=== PATIENT | female | born 1995 | race American Indian/Alaskan Native ===

== ENCOUNTER 2019-02-09 14:58 | Outpatient (CLI) | payer MEDICAID, OTHER ==
[2019-02-09] MEDS ORDERED: LACTATED RINGERS 500 ML IV ONE (15:02)
[2019-02-09 15:45] VITALS: BP 104/60
[2019-02-09 15:53] LABS: Bacteria,Urine 3+ /HPF (Negative); Bilirubin,Urine NEG (Negative); Blood,Urine SM (Negative); Color,Urine Yellow (Yellow); Mucus,Urine FEW /HPF; Protein,Urine <15 mg/dL mg/dL (Negative); Urobilinogen,Urine < 2.0 mg/dL (<2.0)
--- NOTE | 2019-02-09 20:53 | Ultrasound Report ---
PROCEDURE: US OB LIMITED TECHNIQUE: Ultrasound obstetrical transabdominal HISTORY: c/o leaking of fluid COMPARISONS: FINDINGS: Single live intrauterine gestation present in cephalic presentation cardiac activity present. 150 bpm The placenta is anterior Amniotic fluid index within normal limits 14.8 cm IMPRESSION: Normal amniotic fluid index 14.8 cm. This document is electronically signed by Rad Bui MD., February 09 2019 08:51:18 PM ET
== END 2019-02-09 18:27 | disposition home or self-care (01) ==
LOC: TRG 14:58
PROVIDERS: ATTEND Obstetrics & Gynecology
DX: O47.02 False labor before 37 completed weeks of gestation, second trimester (principal); Z3A.26 26 weeks gestation of pregnancy
CPT/HCPCS: 59025; 76815; 81001

== ENCOUNTER 2019-05-05 09:57 | Inpatient (IN) | payer MEDICAID ==
[2019-05-05] MEDS ORDERED: SUBLIMAZE IV PRN (10:24)
[2019-05-05] MEDS ORDERED: BRETHINE SUB-Q PRN (10:24)
--- NOTE | 2019-05-05 10:34 | History and Physical Report ---
History of Present Illness Date of examination: 05/05/19 Date of admission: 05/05/2019 Chief complaint: Contractions History of present illness: 24 year old presents to L&D in active labor. Patient reports her contractions began at 05:00 this morning. She denies leaking of fluid. She reports active movement. Patient received care at [facility] and records were able to be accessed. LMP 07/21/18. EDC 05/12/19 (based on US done at 23 weeks gestation). significant for the following: Late care (23 wks. 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 labs are as follows: B positive, antibody screen negative, rubella immune, hepatitis B surface antigen negative, HIV negative, RPR nonreactive, varicella immune, hemoglobin electrophoresis AA, CT/GC/TV negative, 1 hour diabetes screen 73, GBS negative. 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 denies: hepatitis B, hepatitis C, herpes, HIV, syphilis, trichomonas Family/Genetic History: none Social history: single, lives with family, full code. denies: smoking, alcohol abuse, prescription drug abuse, IV drug use - Obstetrical History Expected Date of Delivery: 05/12/19 Actual Gestation: 39 Week(s) 0 Day(s) : 2 Para: 1 Hx # Term Pregnancies: 0 Number of Pregnancies: 0 Spontaneous Abortions: 0 Induced : 0 Number of Living Children: 1 Medications and Allergies Allergies Allergy/AdvReac Type Severity Reaction Status Date / Time No Known Allergies Allergy Verified 04/21/14 04:49 Home Medications Medication Instructions Recorded Confirmed Last Taken Type No Known Home Medications [No 04/18/14 04/21/14 Unknown History Reported Home Medications] Review of Systems All systems: negative (contractions) - Vital Signs Vital signs: Vital Signs Pulse BP 90 126/76 05/05/19 10:22 05/05/19 10:22 Temp Pulse Resp BP Pulse Ox 90 126/76 05/05/19 10:22 05/05/19 10:22 - Physical Exam Cardiovascular: Regular rate, Normal S1, Normal S2, No murmurs Lungs: Positive: Clear to auscultation Abdomen: Positive: normal appearance, soft. Negative: distention, tenderness, guarding, rigidity Genitourinary (Female): Positive: normal external genitalia, normal perenium. Negative: perineal/vulvar lesions (no lesions noted on careful exam with bright light upon admission) Vagina: Positive: normal moisture Uterus: Positive: enlarged (S=D) Anus/Rectum: Positive: normal perianal skin Extremities: Positive: normal - Obstetrical FHR: category 1 Uterine Contraction Monitor Mode: External Cervical Dilatation: 7 Cervical Effacement Percentage: 95 station: 0 Uterine Contraction Pattern: Regular Uterine Contraction Intensity: Moderate Results All other labs normal. Assessment and Plan A: at 39 weeks gestation. Active labor. GBS negative. P: Admit. Electronic monitoring. Anticipate vaginal .
[2019-05-05] MEDS ORDERED: PITOCin/NS 20 UNIT/1000ML DRIP 20 UNITS/1,000 ML BAG IV SCH (11:00)
[2019-05-05] MEDS ORDERED: XYLOCAINE 2% INFILTRATI ONE (11:00)
[2019-05-05] MEDS: LACTATED RINGERS 1,000 ML IV SCH ×2 (11:30→12:35)
[2019-05-05 11:31] LABS: Hematocrit 29.9 % (30.3-42.9); Mean Corpuscular HGB Conc 33 % (30-34); Mean Corpuscular Volume 87 fl (79-97); Platelet Count 183 K/mm3 (140-440); Red Blood Count 3.42 M/mm3 (3.65-5.03)
[2019-05-05] MEDS ORDERED: fentaNYL-BUPIV 2 MCG/ML-0.125% 200 MCG/100 ML BAG EPIDURAL ONE (11:53)
--- NOTE | 2019-05-05 12:14 | Anesthesia Consultation ---
Anesthesia Consult and Med Hx Date of service: 05/05/19 - Pre-Operative Health Status ASA Pre-Surgery Classification: ASA2 Proposed Anesthetic Plan: Epidural - Pulmonary Hx Asthma: No COPD: No Hx Pneumonia: No - Cardiovascular System Hx Hypertension: No - Central Nervous System Hx Seizures: No Hx Psychiatric Problems: No - Endocrine Hx Renal Disease: No Hx End Stage Renal Disease: No Hx Hypothyroidism: No Hx Hyperthyroidism: No - Hematic Hx Anemia: No Hx Sickle Cell Disease: No - Other Systems Hx Alcohol Use: No
[2019-05-05] MEDS ORDERED: NARCAN 2 MG/2 ML IV PRN (12:15)
--- NOTE | 2019-05-05 12:15 | Anesthesia Day of Surgery ---
Anesthesia Day of Surgery - Day of Surgery Patient Examined: Yes Patient H&P Reviewed: Yes Patient is NPO: No
[2019-05-05] MEDS ORDERED: ZOFRAN ONE (12:30)
[2019-05-05] MEDS ORDERED: fentaNYL-BUPIV 2 MCG/ML-0.125% 200 MCG/100 ML BAG EPIDURAL SCH (13:00)
[2019-05-05] MEDS ORDERED: DULCOLAX PR PRN (16:41)
[2019-05-05] MEDS ORDERED: MILK OF MAGNESIA PO PRN (16:41)
[2019-05-05] MEDS ORDERED: TUCKS PAD TP PRN (16:41)
[2019-05-05] MEDS ORDERED: NORCO 5/325 PO PRN (16:41)
[2019-05-05] MEDS ORDERED: LANSINOH TP PRN (16:41)
[2019-05-05] MEDS ORDERED: SODIUM CHLORIDE FLUSH SYRINGE 10 ML IV SCH (17:00)
--- NOTE | 2019-05-05 19:10 | Procedure Note ---
OB Delivery Note - Delivery Date of Delivery: 05/05/19 Surgeon: VINCENT KLINE Estimated blood loss: other (250 cc) - Vaginal Delivery presentation: vertex Delivery position: OA Intrapartum events: none Delivery induction: none Delivery monitor: external FHT, external uterine Route of delivery: Delivery placenta: spontaneous Delivery cord: 3 umbilical vessels, other (tight nuchal cord times 1) Delivery laceration: none Anesthesia: epidural Delivery comments: Spontaneous vaginal delivery at 14:30 of liveborn male weighing 3.299 kg over intact perineum with apgars of 8/8. Epidural anesthesia. Tight nuchal cord noted after delivery of head; cord clamped and cut on perineum. Baby placed immediately skin to skin with mom after delivery. Spontaneous cry and respira tions; baby dried and bulb suctioned. Spontaneous delivery of intact placenta and membranes at 14:32. EBL 250 cc. Fundus firm and midline. No lacerations noted. Vaginal sweep negative. Sponge count correct. Mother and baby stable in birthing room.
[2019-05-05] MEDS: IBUPROFEN PO SCH (19:45)
[2019-05-05] MEDS: FEOSOL PO SCH (22:55)
[2019-05-06] MEDS: IBUPROFEN PO SCH ×2 (02:30→17:23)
[2019-05-06 04:17] LABS: Hematocrit 28.6 % (30.3-42.9); Hemoglobin 9.7 gm/dl (10.1-14.3)
--- NOTE | 2019-05-06 10:47 | Progress Note ---
Assessment and Plan A: day 1 S/P spontaneous vaginal delivery. Anemia secondary to and blood loss. P: Supplement with oral iron. Anticipate discharge tomorrow if patient continues to do well. Subjective - Subjective Date of service: 05/06/19 Principal diagnosis: day 1 S/P spontaneous vaginal delivery Interval history: day 1 S/P spontaneous vaginal delivery. Doing well. Patient reports a small amount of lochia. She is voiding without difficulty, ambulating well, tolerating a regular diet without nausea or vomiting. She is passing gas. Patient denies headache, cough, shortness of breath, chest pain, dizziness, abdominal pain, leg pain, or heavy vaginal bleeding. Patient reports: appetite normal, voiding normally, pain well controlled, flatus, ambulating normally, no dizzy ambulation, no nauseated [place]: doing well Objective - Vital Signs Latest vital signs: Vital Signs Temp Pulse Resp BP BP Pulse Ox 05/06/19 08:26 98.5 F 64 20 102/51 100 05/06/19 02:35 98.0 F 68 18 119/58 98 05/05/19 21:44 98.3 F 60 20 102/43 100 05/05/19 16:25 97.3 F L 64 18 122/49 05/05/19 15:37 98.1 F 70 16 130/59 05/05/19 15:22 74 111/57 05/05/19 15:07 75 113/70 05/05/19 14:52 80 112/55 05/05/19 14:37 93 H 118/63 05/05/19 14:24 82 132/64 05/05/19 14:23 85 100 05/05/19 14:18 63 100 05/05/19 14:13 83 99 05/05/19 14:08 93 H 98 05/05/19 14:03 83 98 05/05/19 13:58 63 99 05/05/19 13:53 63 100 05/05/19 13:48 82 98 05/05/19 13:43 61 100 05/05/19 13:38 62 99 05/05/19 13:33 64 98 05/05/19 13:28 82 100 05/05/19 13:24 70 125/67 05/05/19 13:23 105 H 98 05/05/19 13:18 102 H 98 05/05/19 13:13 92 H 97 05/05/19 13:08 74 98 05/05/19 13:03 61 97 05/05/19 12:58 67 98 05/05/19 12:53 69 99 05/05/19 12:48 80 99 05/05/19 12:44 94 H 100 05/05/19 12:38 82 100 05/05/19 12:33 109 H 100 05/05/19 12:28 107 H 98 05/05/19 12:23 101 H 130/60 98 05/05/19 12:18 90 99 05/05/19 12:17 84 133/65 05/05/19 12:13 94 H 148/64 98 05/05/19 12:08 93 H 99 05/05/19 12:07 102 H 118/63 05/05/19 12:03 105 H 100 05/05/19 12:01 118 H 110/58 05/05/19 11:59 109 H 99 05/05/19 10:57 99.1 F 18 05/05/19 10:52 88 124/72 Intake and Output 05/05/19 05/06/19 05/06/19 23:59 07:59 15:59 Intake Total 240 Output Total 200 Balance -200 240 Intake: Oral 240 Output: Urine 200 Void 200 Other: Total, Intake Amount 240 Total, Output Amount 200 # Voids Void 1 1 - Exam Abdomen: Present: normal appearance, soft. Absent: distention, tenderness, guarding, rigidity Uterus: Present: normal, firm, fundal height below umbilicus Extremities: Present: normal. Absent: tenderness, edema - Labs Labs: Abnormal lab results 05/05/19 05/06/19 Range/Units 11:00 03:29 WBC 13.1 H (4.5-11.0) K/mm3 RBC 3.42 L (3.65-5.03) M/mm3 Hgb 10.0 L 9.7 L (10.1-14.3) gm/dl Hct 29.9 L 28.6 L (30.3-42.9) % RDW 13.0 L (13.2-15.2) %
[2019-05-06] MEDS: FEOSOL PO SCH ×2 (12:06→21:51)
[2019-05-07] MEDS: IBUPROFEN PO SCH ×3 (03:54→11:43)
[2019-05-07] MEDS: FEOSOL PO SCH (09:40)
--- NOTE | 2019-05-07 13:06 | Progress Note ---
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 Patient reports: appetite normal, voiding normally, pain well controlled, ambulating normally, no dizzy ambulation [place]: doing well, bottle feeding Objective - Vital Signs Latest vital signs: Vital Signs Temp Pulse Resp BP BP Pulse Ox 05/07/19 07:18 98.9 F 72 18 107/75 05/07/19 06:33 20 05/07/19 01:33 98.0 F 63 20 112/63 100 05/06/19 16:57 98.1 F 73 20 116/64 116/64 100 05/06/19 16:32 76 Intake and Output 05/06/19 05/07/19 05/07/19 23:59 07:59 15:59 Intake Total 240 480 Balance 240 480 Intake: Oral 240 480 Other: Total, Intake Amount 240 480 # Voids Void 1 - Exam Cardiovascular: Present: Regular rate Lungs: Present: Clear to auscultation Abdomen: Present: normal appearance, soft Vulva: both: normal Uterus: Present: normal, firm, fundal height below umbilicus Extremities: Present: normal Comments: scant lochia
--- NOTE | 2019-05-07 13:08 | Discharge Summary ---
Providers - Providers Date of Admission: 05/05/19 10:39 Date of discharge: 05/07/19 Attending physician: MICHAEL WASSERMAN MD Primary care physician: WASH OPERATOR Hospitalization Reason for admission: active labor, IUP at term Delivery: Episiotomy: none Laceration: none Other procedures: none complications: none Discharge diagnosis: IUP at term delivered baby: male Hospital course: Uncomplicated Condition at discharge: Stable Disposition: ME- TO HOME OR SELFCARE - Discharge Diagnoses (1) Status post normal vaginal delivery Status: Acute (2) Anemia due to blood loss, acute Status: Acute Comment: Asymptomatic Continue iron therapy Plan - Discharge Medications Prescriptions: Ferrous Sulfate [Feosol 325 MG tab] 325 mg PO BID #60 tablet - Provider Discharge Summary Activity: routine, no sex for 6 weeks, no heavy lifting 4 weeks, no strenuous exercise Diet: routine Instructions: routine Additional instructions: [] Smoking cessation referral if applicable(refer to patient education folder for contact #) [] Refer to [facility] Booklet Call your doctor immediately for: * Fever > 100.5 * Heavy vaginal bleeding ( >1 pad per hour) * Severe persistent headache * Shortness of breath * Reddened, hot, painful area to leg or breast * Drainage or odor from incision. * Keep incision clean and dry at all times and follow doctor's instructions regarding bathing/showering - Follow up plan Follow up: PRIMARY CARE, [Primary Care Provider] - 6 Weeks (Follow up at [facility] as needed or in 6 weeks for exam)
[2019-05-07 17:00] VITALS: BP 120/67
== END 2019-05-07 17:50 | disposition home or self-care (01) | DRG 775 ==
LOC: TRG 09:57 → LD 10:39 → OB 15:56
PROVIDERS: ADMIT Obstetrics & Gynecology; ATTEND Obstetrics & Gynecology
PROC: 10E0XZZ Delivery of Products of Conception, External Approach (ICD-10-PCS; principal; 2019-05-05)
PROC: 3E0R3BZ Introduction of Anesthetic Agent into Spinal Canal, Percutaneous Approach (ICD-10-PCS; 2019-05-05)
PROC: 00HU33Z Insertion of Infusion Device into Spinal Canal, Percutaneous Approach (ICD-10-PCS; 2019-05-05)
DX: O69.1XX0 Labor and delivery complicated by cord around neck, with compression, not applicable or unspecified (principal); Z3A.39 39 weeks gestation of pregnancy; Z37.0 Single live birth; D62 Acute posthemorrhagic anemia; O99.03 Anemia complicating the puerperium
CPT/HCPCS: 36415; 85014; 85018; 85027; 86592; 86850; 86900; 86901; G0378; J2405; J2590; J7120

== ENCOUNTER 2022-06-26 11:19 | Emergency (ER) | payer MEDICAID ==
[2022-06-26 12:12] VITALS: BP 105/67
== END 2022-06-26 21:12 | disposition left against medical advice (07) ==
LOC: ED 11:19
DX: N92.6 Irregular menstruation, unspecified (principal); Z53.21 Procedure and treatment not carried out due to patient leaving prior to being seen by health care provider